=== PATIENT | female | born 1960 | race Caucasian/White ===

== ENCOUNTER 2016-11-16 17:37 | Emergency (ER) | payer OTHER ==
[~2016-11-16] VITALS: Ht 175.3 cm; Wt 85.0 kg
[~2016-11-16 17:37] MED LIST: AMOX500T2 PO; TOBRA.3%O OU; Z.0.NO CURRENT MEDS
[2016-11-16 17:39] VITALS: BP 134/66; PULSE 95; RESP 20; TEMP 100.8; O2SAT 95
[2016-11-17] MEDS ORDERED: LEVO25TA4 PO (06:11)
[2016-11-17] MEDS ORDERED: PERC7.5T13 PO (06:11)
[2016-11-17] MEDS ORDERED: MEDR4PAK PO (07:16)
[2016-11-17] MEDS ORDERED: LEVA500T20 PO (07:16)
[2016-11-17] MEDS ORDERED: VENTAER INH (07:16)
== END 2016-11-16 18:58 | disposition left against medical advice (07) ==
LOC: NED 17:37
DX: R06.00 Dyspnea, unspecified (principal)
CPT/HCPCS: 99281

== ENCOUNTER 2016-11-17 05:52 | Emergency (ER) | payer OTHER ==
[~2016-11-17] VITALS: Ht 175.3 cm; Wt 82.4 kg
[2016-11-17 06:01] VITALS: BP 105/55; PULSE 72; RESP 12; TEMP 99.9; O2SAT 92
[2016-11-17 06:08] VITALS: PULSE 87; RESP 16; O2SAT 95
[2016-11-17] MEDS ORDERED: PERC7.5T13 PO (06:11)
[2016-11-17] MEDS ORDERED: LEVO25TA4 PO (06:11)
[2016-11-17 06:25] VITALS: BP 105/58; PULSE 87; RESP 16; TEMP 99.6; O2SAT 95
--- NOTE | 2016-11-17 06:28 | PD ---
HPI Chief Complaint: Respiratory Symptoms Time Seen by Provider: 06:22 Travel History International Travel<30 days: No Contact w/Intl Traveler<30days: No Traveled to known affect area: No History of Present Illness HPI 56-year-old female presents to the emergency department for 3 days of congested cough wheezing and one day of fever. Patient reports no headache no sinus pressure drainage no sore throat. Patient has prior history of bronchitis. Patient denies any chest pain. Patient does complain of some shortness of breath. Patient smokes cigarettes. Patient rarely drinks alcohol. Patient took ibuprofen for temperature of 10 1F temperature yesterday. Patient was in the emergency department yesterday to be evaluated but left prior to being seen. Patient returns at this time for ongoing symptoms. Patient has been treated before fairly recently for bronchitis. Patient states she has prescriptions for Percocet as needed ibuprofen as needed and Synthroid for history of hypothyroidism. Previous back surgery. No report of lower extremity pain or swelling. No reported long distance travel protracted bedrest her surgical procedure. PFSH Past Medical History Narrative Medical Bronchitis, hypothyroidism, back surgery, tobacco use, alcohol use, nursing notes reviewed Thyroid Disease: Yes ?: Not Menopausal: Yes Tubal Ligation: Yes Social History Alcohol Use: Yes (OCCASIONAL) Tobacco Use: Yes (1/2 PPD) Substance Use: No Allergies-Medications (Allergen,Severity, Reaction): Coded Allergies: No Known Allergies (Verified , 11/17/16) Reported Meds & Prescriptions Reported Meds & Active Scripts Active Medrol Dosepak (Methylprednisolone) 4 Mg Dspk 4 Mg PO DIRECTED Per Pharmacist direction Ventolin Hfa 18 GM Inh (Albuterol Sulfate) 90 Mcg/Act Aer 2 Puff INH Q4-6H PRN Levaquin (Levofloxacin) 500 Mg Tablet 500 Mg PO DAILY Reported Percocet (Oxycodone-Acetaminophen) 7.5-325 mg Tab 1 Tab PO Q6H PRN Levothyroxine (Levothyroxine Sodium) 25 Mcg Tab 25 Mcg PO DAILY Review of Systems Except as stated in HPI: all other systems reviewed are Neg General / Constitutional: Positive: Fever, No: Chills HENT: Positive: Congestion, No: Sore Throat Cardiovascular: No: Chest Pain or Discomfort Respiratory: Positive: Cough, Shortness of Breath, Wheezing Gastrointestinal: No: Nausea, Vomiting, Abdominal Pain Genitourinary: No: Decreased Urinary Output, Flank Pain Musculoskeletal: No: Myalgias, Arthralgias Skin: No Rash Neurologic: No: Weakness Psychiatric: No: Anxiety Endocrine: No: Heat Intolerance Hematologic/Lymphatic: No: Easy Bruising Physical Exam Narrative GENERAL: Well-developed well-nourished female in no acute distress. SKIN: Warm and dry. HEAD: Normocephalic. EYES: No scleral icterus. No injection or drainage. NECK: Supple, trachea midline. No JVD or lymphadenopathy. CARDIOVASCULAR: Regular rate and rhythm without murmurs, gallops, or rubs. RESPIRATORY: Breath sounds equal bilaterally bilateral expiratory wheezing. No accessory muscle use. GASTROINTESTINAL: Abdomen soft, non-tender, nondistended. MUSCULOSKELETAL: No cyanosis, or edema. Radial and dorsalis pedis pulses 2+ to palpation BACK: Nontender without obvious deformity. No CVA tenderness. Data Data Last Documented VS Vital Signs Date Time Temp Pulse Resp B/P Pulse Ox O2 Delivery O2 Flow Rate FiO2 11/17/16 06:25 99.6 87 16 105/58 95 Room Air Orders Chest, Pa & Lat (11/17/16 ) Ecg Monitoring (11/17/16 06:22) Oximetry (11/17/16 06:22) Albuterol-Ipratropium Neb (Duoneb Neb) (11/17/16 06:30) Prednisone (Deltasone) (11/17/16 06:30) Acetaminophen (Tylenol) (11/17/16 06:30) Azithromycin (Zithromax) (11/17/16 06:30) Levofloxacin (Levaquin) (11/17/16 06:30) Albuterol-Ipratropium Neb (Duoneb Neb) (11/17/16 07:15) [facility] Medical Decision Making Medical Screen Exam Complete: Yes Emergency Medical Condition: Yes Medical Record Reviewed: Yes Interpretation(s) cxr: no lobar infiltrate except question small area haziness LLL Differential Diagnosis Bronchitis, pneumonia, exacerbation COPD, CHF, sirs, sepsis Narrative Course Chest x-ray ordered patient given 2 DuoNeb updrafts and prednisone 50 mg by mouth along with first dose of antibiotic Levaquin 750 mg and acetaminophen 650 mg At 6:55 AM patient reassessed clinically improved probable early LLL pneumonia - -infectious bronchitis--CXR w nodule CT recommended patient would like to procede in the ED ---CT signed over to Dr Leonard for follow up CT imaging results Diagnosis Primary Impression: Acute bronchitis due to infection Additional Impressions: Pulmonary infiltrate on chest x-ray Lung nodule Referrals: Primary Care Physician call for appointment Patient Instructions: General Instructions Additional Instructions: Take acetaminophen/Tylenol every 4 hours as needed for fever 100.4F or greater Take ibuprofen 800 mg as often as every 8 hours as needed for fever 100.4F or greater or for pain associated with inflammation Use a rescue inhaler as prescribed as needed for wheezing or shortness of breath Complete course of steroid as prescribed Complete course of antibiotic as prescribed; do NOT perform repetitive climbing or resistance exercises with the lower extremities while on this antibiotic as can increased risk for Achilles tendon rupture. Increase fluid hydration Discontinue tobacco use Return to the emergency department for any concerns or change in condition Follow-up with primary care provider call office to schedule appointment Med/Other Pt SpecificInfo: Prescription(s) given Scripts Methylprednisolone Dosepak (Medrol Dosepak)4 Mg Dspk4 Mg PO DIRECTED #1 DSPK Ref 0 Per Pharmacist direction Prov:Felicia Knox MD 11/17/16 Albuterol 18 GM Inh (Ventolin Hfa 18 GM Inh)90 Mcg/Act Aer2 Puff INH Q4-6H PRN ( SHORTNESS OF BREATH) #1 INHALER Ref 1 Prov:Felicia Knox MD 11/17/16 Levofloxacin (Levaquin)500 Mg [id number] Mg PO DAILY #7 Prov:Felicia Knox MD 11/17/16 Felicia Knox MD Nov 17, 2016 06:28
[2016-11-17] MEDS ORDERED: predniSONE 50 MG TAB PO ONE (06:30)
[2016-11-17] MEDS ORDERED: LEVOFLOXACIN 750 MG TAB PO ONE (06:30)
[2016-11-17] MEDS ORDERED: AZITHROMYCIN 250 MG TAB PO ONE (06:30)
[2016-11-17] MEDS: RESP: ALBUTEROL 2.5 MG/IPRATROPIUM 0.5 MG NEB (SCH) INH (06:30)
[2016-11-17] MEDS ORDERED: ACETAMINOPHEN 325 MG TAB PO ONE (06:30)
[2016-11-17] MEDS ORDERED: RESP: ALBUTEROL 2.5 MG/IPRATROPIUM 0.5 MG NEB (SCH) NEB ONE (07:15)
[2016-11-17] MEDS ORDERED: MEDR4PAK PO (07:16)
[2016-11-17] MEDS ORDERED: VENTAER INH (07:16)
[2016-11-17] MEDS ORDERED: LEVA500T20 PO (07:16)
--- NOTE | 2016-11-17 07:20 | RADRPT ---
EXAM DATE/TIME: 11/17/2016 06:56 [facility] COMPARISON: No previous studies available for comparison. INDICATIONS : Cough, congestion, fever. MEDICAL HISTORY : Hypothyroidism. Smoker. Bronchitis SURGICAL HISTORY : Tubal ligation. Kendrick rods in back. ENCOUNTER: Initial ACUITY: 3 days PAIN SCORE: 0/10 LOCATION: chest FINDINGS: Osseous structures are intact. Heart size upper limits normal. There is streaky infiltrate suspected in the left lower lobe on the frontal projection. On the lateral view there is a nodular density proj ecting anterior to the superior heart border measuring 1.7 cm. A lung mass is not excluded. CT chest recommended for further assessment. CONCLUSION: Possible 1.[address] chest recommended. Streaky left lower lobe airspace disease suspected . Johnnie Robison MD on November 17, 2016 at 7:18 Board Certified Radiologist. This report was verified electronically.
[2016-11-17 07:50] LABS: POTASSIUM 3.5 MEQ/L (3.5-5.1)
[2016-11-17 07:54] LABS: BICARBONATE 26.9 MEQ/L (21.0-32.0)
[2016-11-17] MEDS ORDERED: IOHEXOL 350 MG/ML 10 ML VIAL (for RAD DIAG) IV ONE (08:18)
--- NOTE | 2016-11-17 08:37 | RADRPT ---
EXAM DATE/TIME: 11/17/2016 08:02 [facility] COMPARISON: CHEST PA & LAT, November 17, 2016, 6:56. INDICATIONS : Abnormal chest x-ray. Cough, congestion, wheezing and fever x 3 days. IV CONTRAST: 60 cc Omnipaque 350 (iohexol) IV RADIATION DOSE: 8.92 CTDIvol (mGy) MEDICAL HISTORY : Hypothyroidism. SURGICAL HISTORY : Tubal ligation. Kendrick rods. ENCOUNTER: Initial ACUITY: 3 days PAIN SCALE: 0/10 LOCATION: chest TECHNIQUE: Volumetric scanning of the chest was performed. Using automated exposure control and adjustment of t he mA and/or kV according to patient size, radiation dose was kept as low as reasonably achievable to obtain optimal diagnostic quality images. DICOM format image data is available electronically for review and comparison. Follow-up recommendations for incidentally detected pulmonary nodules are based at a minimum on nodul e size and patient risk factors according to Fleischner Society Guidelines. FINDINGS: LUNGS: There are patchy geographic areas of groundglass opacity involving the left lung and right upper lobe and right middle lobe. Linear opacity is present in the right lower lobe. No pneumothorax is visuali zed. No pulmonary nodule is seen. PLEURA: There is no pleural thickening or pleural effusion. MEDIASTINUM: The heart and great vessels demonstrate no acute abnormality. There is no mediastinal or hilar lymph adenopathy. AXILLAE: Within normal limits. No lymphadenopathy. SKELETAL: There are mild degenerative changes of the thoracic spine. MISCELLANEOUS: The visualized upper abdominal organs demonstrate no acute abnormality. There is a 10 mm left hepatic cyst. CONCLUSION: 1. No pulmonary nodule is visualized. 2. However, there are patchy geographic areas of groundglass opacity involving the lungs bilaterally. Given the history of cough and fever an infectious process is the most likely etiology. Suggest foll owup imaging following appropriate therapy to confirm resolution. Haider Chin MD on November 17, 2016 at 8:30 Board Certified Radiologist. This report was verified electronically.
--- NOTE | 2016-11-17 08:47 | PD ---
Data Data Last Documented VS Vital Signs Date Time Temp Pulse Resp B/P Pulse Ox O2 Delivery O2 Flow Rate FiO2 11/17/16 06:25 99.6 87 16 105/58 95 Room Air Orders Chest, Pa & Lat (11/17/16 ) Ecg Monitoring (11/17/16 06:22) Oximetry (11/17/16 06:22) Albuterol-Ipratropium Neb (Duoneb Neb) (11/17/16 06:30) Prednisone (Deltasone) (11/17/16 06:30) Acetaminophen (Tylenol) (11/17/16 06:30) Azithromycin (Zithromax) (11/17/16 06:30) Levofloxacin (Levaquin) (11/17/16 06:30) Albuterol-Ipratropium Neb (Duoneb Neb) (11/17/16 07:15) Basic Metabolic Panel (Bmp) (11/17/16 07:26) Ct Thorax/ Chest W Iv Contrast (11/17/16 ) ^ Saline Lock (11/17/16 07:26) Iohexol 350 Inj (Omnipaque 350 Inj) (11/17/16 08:18) Labs Laboratory Tests Test 11/17/16 07:38 Sodium Level 141 MEQ/L Potassium Level 3.5 MEQ/L Chloride Level 109 MEQ/L Carbon Dioxide Level 26.9 MEQ/L Anion Gap 5 MEQ/L Blood Urea Nitrogen 10 MG/DL Creatinine 0.82 MG/DL Estimat Glomerular Filtration 72 ML/MIN Rate Random Glucose 122 MG/DL Calcium Level 8.3 MG/DL [facility] Supervised Visit with JASON: Yes Narrative Course Septic 56-year-old woman with cough and congestion as well as fever and a history of recurrent bronchitis. She was initially evaluated by Dr. Knox and set out to to follow-up on results of CT imaging that was done because of a pulmonary nodule on x-ray. Studies show: BMP is unremarkable chest x-ray shows 1.7 cm lung nodule. Some streaky left lower lobe airspace disease is suspected as well. Chest x-ray showed suspected lung nodule and some streaky left lower lobe opacities. Chest CT shows no pulmonary nodule however patchy geographic areas of groundglass opacity involving the lungs bilaterally suggest infectious process. Patient received albuterol Levaquin and prednisone. She was feeling improved in the ED. Patient will be discharged for outpatient follow-up and treatment. Diagnosis Primary Impression: Acute bronchitis due to infection Additional Impressions: Pulmonary infiltrate on chest x-ray Lung nodule Referrals: Primary Care Physician call for appointment Patient Instructions: General Instructions, Acetaminophen (By mouth), Ibuprofen (By mouth), How to Stop Smoking (ED), Cigarette Smoking and Your Health (GEN), Acute Bronchitis (ED), Pulmonary Nodules (ED) Departure Forms: Tests/Procedures Additional Instruction: Take acetaminophen/Tylenol every 4 hours as needed for fever 100.4F or greater Take ibuprofen 800 mg as often as every 8 hours as needed for fever 100.4F or greater or for pain associated with inflammation Use a rescue inhaler as prescribed as needed for wheezing or shortness of breath Complete course of steroid as prescribed Complete course of antibiotic as prescribed; do NOT perform repetitive climbing or resistance exercises with the lower extremities while on this antibiotic as can increased risk for Achilles tendon rupture. Increase fluid hydration Discontinue tobacco use Return to the emergency department for any concerns or change in condition Follow-up with primary care provider call office to schedule appointment. They may want to perform repeat imaging to confirm resolution of your pneumonia on the x-ray. Scripts Methylprednisolone Dosepak (Medrol Dosepak)4 Mg Dspk4 Mg PO DIRECTED #1 DSPK Ref 0 Per Pharmacist direction Prov:Felicia Knox MD 11/17/16 Albuterol 18 GM Inh (Ventolin Hfa 18 GM Inh)90 Mcg/Act Aer2 Puff INH Q4-6H PRN ( SHORTNESS OF BREATH) #1 INHALER Ref 1 Prov:Felicia Knox MD 11/17/16 Levofloxacin (Levaquin)500 Mg [id number] Mg PO DAILY #7 Prov:Felicia Knox MD 11/17/16 Disposition: 01 DISCHARGE HOME Condition: Stable Jaquan Leonard MD Nov 17, 2016 08:46
== END 2016-11-17 09:02 | disposition home or self-care (01) ==
LOC: PHED 05:52
DX: J20.9 Acute bronchitis, unspecified (principal); R91.8 Other nonspecific abnormal finding of lung field; R91.1 Solitary pulmonary nodule; R50.9 Fever, unspecified; E03.9 Hypothyroidism, unspecified; F17.200 Nicotine dependence, unspecified, uncomplicated; Z87.09 Personal history of other diseases of the respiratory system
CPT/HCPCS: 71020; 71260; 80048; 94640; 94664; 99285; J7512; Q9967